=== PATIENT | female | born 1970 | race Caucasian/White ===

== ENCOUNTER 2017-07-21 08:50 | Emergency (ER) | payer OTHER ==
[~2017-07-21] VITALS: Ht 149.9 cm; Wt 48.5 kg
[~2017-07-21 08:50] MED LIST: ASMANEX0.24 G3; CLARINEX5 MG/TAB PO; COZAAR25 MG; DESLORATADINE5 MG PO; PROVENTIL3 ML/2.5 M IH; SINGULAIR10 MG; TUSSIN DM 400-1 EACH PO; [UNRECOGNIZED DRUG - OTHER] PO
[2017-07-21] MEDS ORDERED: MECLIZINE HCL25 MG PO (14:14)
== END 2017-07-21 15:39 | disposition home or self-care (01) ==
LOC: ER 08:50
DX: R42 Dizziness and giddiness (principal)

== ENCOUNTER → 2018-01-17 | Emergency (ER) | payer OTHER ==
[~2018-01-17] VITALS: Ht 149.9 cm; Wt 49.4 kg
[~2018-01-17] MED LIST changes: +MECLIZINE HCL25 MG PO
== END | disposition left against medical advice (07) ==
LOC: ER 16:47
DX: Z53.20 Procedure and treatment not carried out because of patient's decision for unspecified reasons (principal)

== ENCOUNTER 2018-05-12 18:26 | Emergency (ER) | payer OTHER ==
[~2018-05-12] VITALS: Ht 152.4 cm; Wt 50.3 kg
== END 2018-05-12 19:58 | disposition home or self-care (01) ==
LOC: ER 18:26
DX: T78.1XXA Other adverse food reactions, not elsewhere classified, initial encounter (principal); R06.02 Shortness of breath

== ENCOUNTER 2019-05-25 16:32 | Emergency (ER) | payer OTHER ==
[~2019-05-25] VITALS: Ht 149.9 cm; Wt 49.9 kg
[2019-05-25] MEDS ORDERED: METH16TA PO (16:42)
== END 2019-05-25 21:04 | disposition home or self-care (01) ==
LOC: ER 16:32
DX: R06.02 Shortness of breath (principal)

== ENCOUNTER 2020-05-15 18:07 | Emergency (ER) | payer OTHER ==
[~2020-05-15] VITALS: Ht 149.9 cm; Wt 49.0 kg
[~2020-05-15 18:07] MED LIST changes: +METH16TA PO
== END 2020-05-15 19:36 | disposition home or self-care (01) ==
LOC: ER 18:07
DX: R06.02 Shortness of breath (principal); R07.89 Other chest pain; F41.8 Other specified anxiety disorders

== ENCOUNTER 2021-01-05 13:47 | Emergency (ER) | payer OTHER ==
[~2021-01-05] VITALS: Ht 157.5 cm; Wt 49.9 kg
[2021-01-05] MEDS ORDERED: SINGULAIR 10MG10 MG (14:20)
== END 2021-01-05 17:56 | disposition home or self-care (01) ==
LOC: ER 13:47
DX: M54.42 Lumbago with sciatica, left side (principal); M41.85 Other forms of scoliosis, thoracolumbar region; M54.89 Other dorsalgia

== ENCOUNTER → 2023-10-22 | Emergency (ER) | payer OTHER ==
[~2023-10-22] VITALS: Ht 149.9 cm; Wt 47.6 kg
[~2023-10-22] MED LIST changes: +CEFTRIAXONE SODIUM 1,000 MG VIAL IV STA; +CEFTRIAXONE SODIUM 1,000 MG VIAL ONE; +DEXAMETHASONE SODIUM PHOSPHATE 4 MG/ML VIAL IV STA; +DEXAMETHASONE SODIUM PHOSPHATE 4 MG/ML VIAL ONE; +REPATHA SY140 MG/1 M SQ; +SINGULAIR 10MG10 MG; +ZITHROMAX500 MG PO
[2023-10-22 10:52] LABS: HEMATOCRIT 39.2 % (36.0-45.00); HEMOGLOBIN 13.2 g/dL (12.0-15.00); MEAN CELL VOLUME 95.5 fL (80.00-100.00); MEAN CORPUSCULAR HEMOGLOBIN 32.1 pg (27.00-32.0); MEAN CORPUSCULAR HGB CONC 33.6 g/dl (32.0-36.0); PLATELET COUNT 225 K/uL (150-450); RED BLOOD COUNT 4.11 M/uL (4.00-6.00); RED CELL DISTRIBUTION WIDTH 13.8 % (11.5-14.5)
== END | disposition home or self-care (01) ==
LOC: ER 07:19
PROVIDERS: Emergency Medicine
DX: J02.9 Acute pharyngitis, unspecified (principal); Z88.6 Allergy status to analgesic agent; Z88.8 Allergy status to other drugs, medicaments and biological substances; Z20.822 Contact with and (suspected) exposure to COVID-19